=== PATIENT | female | born 1940 | race African-American/Black ===

== ENCOUNTER 2016-11-03 14:05 | Emergency (ER) | payer MEDICARE ==
[2016-11-03 15:35] LABS: ABSOLUTE NEUTROPHIL COUNT 4.8 K/mm3 (1.8-7.7); BASO # 0.1 K/mm3 (0.0-0.2); BASO % 1.1 % (0.2-1.0); EOS # 0.3 (0.0-0.5); EOS % 3.5 % (0.9-2.9); HEMATOCRIT 26.4 % (37.0-47.0); HEMOGLOBIN 7.5 gm/l (12.0-16.0); IMM NEUT% 0.1 % (0-1); LYMPH # 1.9 (1.0-4.8); LYMPH % 25.6 % (15-45); MEAN CELL VOLUME 69.3 fl (81.0-99.0); MEAN CORPUSCULAR HEMOGLOBIN 19.7 pg (27.0-31.0); MEAN CORPUSCULAR HGB CONC 28.4 g/dl (33.0-37.0); MEAN PLATELET VOLUME 9.8 fl (7.4-10.4); MONO # 0.3 (0.0-0.8); NEUT % 65.7 % (43-75); PLATELET COUNT 463 K/mm3 (130-400); RED CELL DISTRIBUTION WIDTH 23.9 % (11.5-14.5)
[2016-11-03 15:45] LABS: ALB/GLOB RATIO 1.1 (>1.0); ALBUMIN 3.6 gm/dL (3.5-5.7); CALCIUM 9.5 mg/dL (8.6-10.3)
[2016-11-03 15:53] LABS: INR 0.96; PROTHROMBIN TIME 10.1 SECONDS (9.3-11.4)
[2016-11-03 17:29] LABS: ANISOCYTOSIS 1+; HYPOCHROMIA 1+; PLATELET ESTIMATE INCREASED (NORMAL)
== END 2016-11-03 17:25 | disposition home or self-care (01) ==
LOC: ED 14:05
DX: D50.8 Other iron deficiency anemias (principal); R11.10 Vomiting, unspecified; I10 Essential (primary) hypertension; F17.210 Nicotine dependence, cigarettes, uncomplicated; E11.9 Type 2 diabetes mellitus without complications; Z79.4 Long term (current) use of insulin